=== PATIENT | male | born 1965 | race Caucasian/White ===

== ENCOUNTER 2023-03-19 06:32 | Day surgery (SDC) | payer BC, OTHER ==
[2023-03-19] MEDS ORDERED: LACTATED RINGERS 1,000 ML IV ONE ×2 (06:40→08:29)
[2023-03-19] MEDS ORDERED: LIDOCAINE-PF 2% 10 ML AMP SUBQ ONE (07:17)
[2023-03-19] MEDS ORDERED: PROPOFOL 500 MG/50 ML 500 MG/50 ML VIAL ONE (07:17)
[2023-03-19] MEDS ORDERED: MIDAZOLAM 2 MG/2 ML VIAL ONE (07:17)
--- NOTE | 2023-03-19 07:26 | ANESTHESIA ---
Pre-Anesthesia VS, & Labs - Diagnosis screening - Procedure colonoscopy Vital Signs: Temp Pulse Resp BP Pulse Ox O2 Flow Rate 36.7 C 81 14 129/98 H 97 03/19/23 06:46 03/19/23 06:46 03/19/23 06:46 03/19/23 06:46 03/19/23 06:46 Height: 5 ft 8 in Weight (kg): 103.6 kg Body Mass Index: 34.7 BMI Classification: Obese - NPO >8 hours - Lab Results Lab results reviewed: Yes Home Medications and Allergies Home Medications: Ambulatory Orders Atorvastatin [Lipitor] 20 mg PO DAILY 03/18/23 Losartan/Hydrochlorothiazide [Hyzaar 100-25 Tablet] 1 tab PO DAILY 03/18/23 amLODIPine [Norvasc] 10 mg PO DAILY 03/18/23 Atorvastatin [Lipitor] 20 mg PO DAILY 03/18/23 Losartan/Hydrochlorothiazide [Hyzaar 100-25 Tablet] 1 tab PO DAILY 03/18/23 amLODIPine [Norvasc] 10 mg PO DAILY 03/18/23 Allergies/Adverse Reactions: Allergies Allergy/AdvReac Type Severity Reaction Status Date / Time No Known Drug Allergies Allergy Verified 03/18/23 12:04 Anes History & Medical History - Anesthetic History Anesthesia Complications: reports: No previous complications Family history of Anesthesia Complications: Denies Family history of Malignant Hyperthermia: Denies - Medical History Cardiovascular: reports: Hypertension, High cholesterol Pulmonary: reports: None Gastrointestinal: reports: None Urinary: reports: None Musculoskeletal: reports: None Endocrine/Autoimmune: reports: None Skin: reports: None - Surgical History Orthopedic: reports: Other Exam General: Alert, Oriented x3, Cooperative Dental: WNL Mouth Openin Fingerbreadth Neck Mobility: Normal Mallampati classification: II Thyromental Distance: 4-6 cm Respiratory: Lungs clear, Normal breath sounds, No respiratory distress Cardiovascular: Regular rate Neurological: Normal speech Mental/Cognitive Status: Alert/Oriented X3, Normal for patient Cognitive Status: Within normal limits Plan Anesthesia Type: Total IV Consent for Procedure(s) Verified and Reviewed: Yes Code Status: Attempt Resuscitation ASA classification: 2-Mild systemic disease Is this case an emergency?: No
[2023-03-19 08:36] VITALS: O2SAT 98
[2023-03-19 08:56] VITALS: BP 119/87
--- NOTE | 2023-03-19 09:21 | ANESTHESIA POST OP EVALUATION ---
Anesthesia Post Eval - Post Anesthesia Eval Vitals: Last Vital Signs Temp 36.6 C 03/19/23 08:29 Pulse 75 03/19/23 08:45 Resp 16 03/19/23 08:45 BP 119/87 H 03/19/23 08:45 Pulse Ox 98 03/19/23 08:45 O2 Flow Rate CV Function Including HR & BP: Stable Pain Control: Satisfactory Nausea & Vomiting: Negative Mental Status: Baseline Respiratory Status: Airway Patent Hydration Status: Satisfactory Anesthesia Complications: None
== END 2023-03-19 06:33 | disposition home or self-care (01) ==
LOC: SDS 06:32
PROVIDERS: ATTEND Surgery
PROC: 0DBL8ZX Excision of Transverse Colon, Via Natural or Artificial Opening Endoscopic, Diagnostic (ICD-10-PCS; 2023-03-19)
PROC: 0DBM8ZX Excision of Descending Colon, Via Natural or Artificial Opening Endoscopic, Diagnostic (ICD-10-PCS; 2023-03-19)
PROC: 0DBK8ZX Excision of Ascending Colon, Via Natural or Artificial Opening Endoscopic, Diagnostic (ICD-10-PCS; principal; 2023-03-19 07:30)
DX: Z12.11 Encounter for screening for malignant neoplasm of colon (principal); D12.2 Benign neoplasm of ascending colon; D12.3 Benign neoplasm of transverse colon; D12.4 Benign neoplasm of descending colon; I10 Essential (primary) hypertension; E66.9 Obesity, unspecified; Z68.34 Body mass index [BMI] 34.0-34.9, adult; Z79.899 Other long term (current) drug therapy
CPT/HCPCS: 45380; 45385; J7120